=== PATIENT | female | born 1990 | race Caucasian/White ===

== ENCOUNTER 2017-01-20 16:20 | Inpatient (IN) | payer MEDICAID ==
[2017-01-20] MEDS ORDERED: OXYTOCIN/LACTATED RINGERS 250 ML IV ONE ×3 (16:53→18:03)
[2017-01-20] MEDS ORDERED: LIDOCAINE 1% 50 ML MDV ONE (16:53)
[2017-01-20 16:57] LABS: BASOPHILS % (AUTO) 0.3 %; EOSINOPHILS # (AUTO) 0.1 10^3/uL (0.0-0.7); EOSINOPHILS % (AUTO) 1.5 %; HCT - HEMATOCRIT 36.1 % (37.0-47.0); HGB - HEMOGLOBIN 11.9 g/dL (12.0-16.0); LYMPHOCYTES # (AUTO) 1.8 10^3/uL (1.5-3.5); LYMPHOCYTES % (AUTO) 21.1 %; MEAN CORPUSCULAR HEMOGLOBIN 28.2 pg (27.0-31.0); MEAN CORPUSCULAR HGB CONC 32.9 g/dL (32.0-36.0); MEAN CORPUSCULAR VOLUME 85.6 fL (81.0-99.0); MEAN PLATELET VOLUME 9.5 fL (7.9-10.8); MONOCYTES # (AUTO) 0.7 10^3/uL (0.0-1.0); MONOCYTES % (AUTO) 7.8 %; NEUTROPHILS # (AUTO) 5.8 10^3/uL (1.5-6.6); NEUTROPHILS % (AUTO) 69.3 %; RED BLOOD COUNT 4.21 10^6/uL (4.20-5.40); RED CELL DISTRIBUTION WIDTH 14.5 % (12.0-15.0); UNCORRECTED WHITE BLOOD COUNT 8.4 x10^3/uL; WHITE BLOOD COUNT 8.4 x10^3/uL (4.8-10.8)
[2017-01-20] MEDS ORDERED: SODIUM CHLORIDE FLUSH 0.9% 10 ML SYRINGE IVP PRN (17:48)
[2017-01-20] MEDS ORDERED: ACETAMINOPHEN 500 MG TABLET PO SCH (18:00)
[2017-01-20] MEDS ORDERED: LACTATED RINGERS 1,000 ML IV SCH ×2 (18:00→19:00)
[2017-01-20] MEDS ORDERED: oxyCODONE 5 MG TABLET PO PRN (18:03)
[2017-01-20] MEDS ORDERED: HYDROCORTISONE 1% CREAM 28 GM TUBE PR PRN (18:03)
[2017-01-20 18:44] LABS: BASOPHILS % (AUTO) 0.2 %; EOSINOPHILS # (AUTO) 0.1 10^3/uL (0.0-0.7); EOSINOPHILS % (AUTO) 0.9 %; HCT - HEMATOCRIT 33.6 % (37.0-47.0); HGB - HEMOGLOBIN 11.1 g/dL (12.0-16.0); LYMPHOCYTES # (AUTO) 1.2 10^3/uL (1.5-3.5); LYMPHOCYTES % (AUTO) 11.3 %; MEAN CORPUSCULAR HEMOGLOBIN 28.3 pg (27.0-31.0); MEAN CORPUSCULAR HGB CONC 33.1 g/dL (32.0-36.0); MEAN CORPUSCULAR VOLUME 85.6 fL (81.0-99.0); MEAN PLATELET VOLUME 9.2 fL (7.9-10.8); MONOCYTES # (AUTO) 0.7 10^3/uL (0.0-1.0); MONOCYTES % (AUTO) 6.5 %; NEUTROPHILS # (AUTO) 8.3 10^3/uL (1.5-6.6); NEUTROPHILS % (AUTO) 81.1 %; RED BLOOD COUNT 3.92 10^6/uL (4.20-5.40); RED CELL DISTRIBUTION WIDTH 14.4 % (12.0-15.0); UNCORRECTED WHITE BLOOD COUNT 10.2 x10^3/uL; WHITE BLOOD COUNT 10.2 x10^3/uL (4.8-10.8)
--- NOTE | 2017-01-20 18:58 | DELIVERY NOTE ---
Delivery Note - Labor Labor: positive: Spontaneous - Delivery Method Delivery Method: positive: Spontaneous vaginal delivery - Presentation Presentation: positive: Vertex, MAC - right occiput anterior - Nuchal Cord Nuchal Cord: positive: None - Anesthetic Anesthetic Type: Anesthetic: positive: Lidocaine - 1% plain Volume: positive: Other - Amniotic Fluid Description Amniotic Fluid Description: positive: Clear - Episiotomy Type Episiotomy Type: positive: None - Laceration Laceration: positive: Labial (left and right) - Suture Suture Type: positive: Vicryl Suture Size: positive: 3-0 - Delivery Outcome Delivery Outcome: positive: Livebirth - [place] Alt[place]ont: positive: Placed in direct skin contact with mother, Bulb syringe [place] sex: positive: Male (Apgars 8/9, 6lb 2oz) - Placenta Placenta: positive: Intact (acessory loab) - Estimated Blood Loss Estimated Blood Loss (in cc): 250 - Delivery Comments (Free Text/Narrative) Delivery Comments (Free Text/Narrative): Pt presented to labor an delivery with strong contractions. exam showed her to be 6/100%/0 station. She was deemed nontransferable. Iv was placed and blood drawn. she went to complete at 1637 and progressed to complete. Pushed thru 2 contractions and at 1643 delivered a live male infant 8/9 weight 6 lb 2 oz. she suffered left and right labial lacerations were repared wi 250 ml
--- NOTE | 2017-01-20 19:28 | PREOP HISTORY & PHYSICAL ---
DATE OF ADMISSION/SURGERY: IDENTIFICATION: The patient is a 26-year-old G4, P1, AB2 female whose last menstrual period was in April. She was seen at the Clinic in [place], at which time she had an ultrasound at 12 weeks which confirmed her due date of January,. This makes her 38.2 weeks today. CHIEF COMPLAINT: Contractions. HISTORY OF PRESENT ILLNESS: The patient states at roughly 12 o'clock she developed contractions which were strong. She denies any spontaneous rupture of membranes, does note some bloody discharge. She noted good motion. She presents at this time in active labor. Her OB history is positive for having had an initial diagnosis of with early ultrasound at 12 weeks which confirmed her due date. She had her OB care done at [facility] while she was in rehab. She was able to be released from rehab, however, she relapsed and she was placed on methadone. She states that she was currently taking 95 mg of methadone on a daily basis. She missed her last dose, and so she is supplementally utilizing initially IV heroin, then smoked heroin. She has also taken some methamphetamine's at this same time within the last 48 hours. Because her initial records were not available, she states that she tested negative for diabetes. She also relates she was negative for group B strep, however, those records are not available to us at this time. Her OB history, she had been cared for at the [facility]. She has received her methadone at the [facility]. PAST MEDICAL HISTORY: Positive for drug abuse since 22 years of age. She states that she has been clean off and on. SURGICAL HISTORY: None. CURRENT MEDICATIONS: She states she takes methadone 95 mg on a daily basis. HABITS: The patient denies use of alcohol or tobacco. Has utilized heroin within the last 24 hours, as well as methamphetamine. SOCIAL HISTORY: Lives with a boyfriend. PHYSICAL EXAMINATION: Physical examination is brief. VITAL SIGNS: Pulse 72, respirations 18, blood pressure 139/74. She is currently in active labor with strong contractions. HEENT: Pupils were equal, round, extraocular muscles are intact. There is no evidence of any scleral icterus. HEART: Regular rate and rhythm without murmurs. LUNGS: Lung roy are clear. ABDOMEN: Gravid, measures 36 cm. CERVIX: Cervix on admission was 6 cm, 100% effaced, 0 station, vertex. At this point we felt a transfer was not an option. DTR's are 3+. Labs are not available upon the initial examination. IMPRESSION: 1. A 38.2 weeks 4, para 1, AB2 female. 2. Methadone use. 3. Active labor with advanced dilatation. History of rapid deliveries. PLAN: Will place an IV. Will obtain an epidural if time allows and will plan to do a spontaneous vaginal delivery. Will attempt to have Pediatrics in attendance for delivery. JOB #: [id number] EXT JOB #:[id number] MTDD
[2017-01-20] MEDS ORDERED: METHADONE 5 MG TABLET PO SCH ×2 (19:30→20:00)
[2017-01-20] MEDS: IBUPROFEN 800 MG TABLET PO SCH (19:30)
[2017-01-20] MEDS ORDERED: DOCUSATE SODIUM 100 MG CAPSULE PO SCH (21:00)
[2017-01-20] MEDS: HYDROCORTISONE/PRAMOXINE 10 GM PR PRN (21:33)
[2017-01-20] MEDS: WITCH HAZEL/GLYCERIN 1 EACH MED..PAD TOP PRN (21:33)
[2017-01-20] MEDS ORDERED: SIMETHICONE CHEW 80 MG TABLET PO SCH (22:00)
[2017-01-20] MEDS ORDERED: SODIUM CHLORIDE FLUSH 0.9% 10 ML SYRINGE IVP SCH (22:00)
[2017-01-21] MEDS: IBUPROFEN 800 MG TABLET PO SCH (04:55)
[2017-01-21 06:29] LABS: BASOPHILS % (AUTO) 0.3 %; EOSINOPHILS # (AUTO) 0.1 10^3/uL (0.0-0.7); EOSINOPHILS % (AUTO) 1.2 %; HCT - HEMATOCRIT 28.5 % (37.0-47.0); HGB - HEMOGLOBIN 9.5 g/dL (12.0-16.0); LYMPHOCYTES # (AUTO) 2.3 10^3/uL (1.5-3.5); LYMPHOCYTES % (AUTO) 27.1 %; MEAN CORPUSCULAR HEMOGLOBIN 28.7 pg (27.0-31.0); MEAN CORPUSCULAR HGB CONC 33.4 g/dL (32.0-36.0); MEAN CORPUSCULAR VOLUME 85.8 fL (81.0-99.0); MEAN PLATELET VOLUME 9.3 fL (7.9-10.8); MONOCYTES # (AUTO) 0.8 10^3/uL (0.0-1.0); MONOCYTES % (AUTO) 9.3 %; NEUTROPHILS # (AUTO) 5.2 10^3/uL (1.5-6.6); NEUTROPHILS % (AUTO) 62.1 %; RED BLOOD COUNT 3.32 10^6/uL (4.20-5.40); RED CELL DISTRIBUTION WIDTH 14.3 % (12.0-15.0); UNCORRECTED WHITE BLOOD COUNT 8.4 x10^3/uL; WHITE BLOOD COUNT 8.4 x10^3/uL (4.8-10.8)
--- NOTE | 2017-01-21 07:40 | PROVIDER PROGRESS NOTE ---
Subjective - Prog Note Date Prog Note Date: 01/21/17 Prog Note Time: 07:37 - Subjective Pt reports feeling: Improved (Pt raiza swets or with drawel symptoms. Notes pain with urination. Baby at NICU in [place]. would like to go to be with baby. Pt will also go to [facility] for Methadone dose.) Objective - Vital Signs/Intake & Output Reviewed Vital Signs: Yes Vital Signs: Vital Signs x48h Temp Pulse Resp BP 01/21/17 04:55 36.8 C 96 16 83/52 L Intake & Output: Intake & Output 01/18/17 01/19/17 01/20/17 01/21/17 23:59 23:59 23:59 23:59 Output Total 800 Balance -800 - Objective General Appearance: positive: Alert, Mild distress (C/O perineal pain) Neck: positive: Nml inspection Respiratory: positive: Chest non-tender, No respiratory distress, Breath sounds nml. negative: Wheezes Cardiovascular: positive: Regular rate & rhythm, No murmur, No gallop Abdomen: positive: Non-tender, No organomegaly, Nml bowel sounds, Mass (At U) Back: positive: Nml inspection. negative: CVA tenderness (R), CVA tenderness (L ) Extremities: negative: Calf tenderness, Daphney's sign/cords Neurologic/Psychiatric: positive: Oriented x3 - Lab Results Fish Bones: 01/21/17 05:50 Other Labs: Lab Results x24hrs 01/21/17 01/20/17 01/20/17 Range/Units 05:50 18:12 16:42 WBC 8.4 10.2 (4.8-10.8) x10^3/uL RBC 3.32 L 3.92 L (4.20-5.40) 10^6/uL Hgb 9.5 L 11.1 L (12.0-16.0) g/dL Hct 28.5 L 33.6 L (37.0-47.0) % MCV 85.8 85.6 (81.0-99.0) fL MCH 28.7 28.3 (27.0-31.0) pg MCHC 33.4 33.1 (32.0-36.0) g/dL RDW 14.3 14.4 (12.0-15.0) % Plt Count 181 199 (130-450) 10^3/uL MPV 9.3 9.2 (7.9-10.8) fL Neut # 5.2 8.3 H (1.5-6.6) 10^3/uL Lymph # 2.3 1.2 L (1.5-3.5) 10^3/uL Ray # 0.8 0.7 (0.0-1.0) 10^3/uL Eos # 0.1 0.1 (0.0-0.7) 10^3/uL Baso # 0.0 0.0 (0.0-0.1) 10^3/uL Absolute Nucleated RBC 0.00 0.00 x10^3/uL Nucleated RBCs 0.0 0.0 /100WBC Blood Type O POSITIVE Antibody Screen NEGATIVE 01/20/17 Range/Units 16:42 WBC 8.4 (4.8-10.8) x10^3/uL RBC 4.21 (4.20-5.40) 10^6/uL Hgb 11.9 L (12.0-16.0) g/dL Hct 36.1 L (37.0-47.0) % MCV 85.6 (81.0-99.0) fL MCH 28.2 (27.0-31.0) pg MCHC 32.9 (32.0-36.0) g/dL RDW 14.5 (12.0-15.0) % Plt Count 220 (130-450) 10^3/uL MPV 9.5 (7.9-10.8) fL Neut # 5.8 (1.5-6.6) 10^3/uL Lymph # 1.8 (1.5-3.5) 10^3/uL Ray # 0.7 (0.0-1.0) 10^3/uL Eos # 0.1 (0.0-0.7) 10^3/uL Baso # 0.0 (0.0-0.1) 10^3/uL Absolute Nucleated RBC 0.00 x10^3/uL Nucleated RBCs 0.0 /100WBC Blood Type Antibody Screen Assessment/Plan - Problem List (1) Methadone dependence Impression: Pt is using 95 mg daily was given 60 mg. baby was transfered to [place] last night. Will discharge so she may be with her baby and will be able to get herDose at [facility]. (2) Vaginal delivery Impression: Pt is doing well. pt is not to breast feed. tight breast binding. Motrin pt wants to do Nexplanon.
[2017-01-21] MEDS: WITCH HAZEL/GLYCERIN 1 EACH MED..PAD TOP PRN (08:02)
[2017-01-21] MEDS: HYDROCORTISONE/PRAMOXINE 10 GM PR PRN (08:02)
[2017-01-21 08:32] VITALS: BP 109/66
[2017-01-21] MEDS ORDERED: MEASLES,MUMPS & RUBELLA VACC 0.5 ML VIAL SUBQ ONE (10:45)
== END 2017-01-21 10:10 | disposition home or self-care (01) | DRG 775 ==
LOC: WFO 16:20 → OB 16:27 → WFO 16:29 → OB 16:30 → UNDOADMIN 16:30 → WFO 17:08 → OB 17:08 → UNDOADMIN 17:09 → OB 17:09 → UNDODISIN 01-21 10:10
PROVIDERS: ADMIT Obstetrics & Gynecology; ATTEND Obstetrics & Gynecology
PROC: 10E0XZZ Delivery of Products of Conception, External Approach (ICD-10-PCS; principal; 2017-01-20)
PROC: 0HQ9XZZ Repair Perineum Skin, External Approach (ICD-10-PCS; 2017-01-20)
DX: O99.324 Drug use complicating childbirth (principal); F11.20 Opioid dependence, uncomplicated; O70.0 First degree perineal laceration during delivery; O43.193 Other malformation of placenta, third trimester; Z3A.38 38 weeks gestation of pregnancy; Z37.0 Single live birth
CPT/HCPCS: 36415; 80306; 85025; 86765; 86850; 86900; 86901; 87797; 88307; 99211

== ENCOUNTER 2017-04-22 07:53 | Emergency (ER) | payer MEDICAID ==
[2017-04-22] MEDS ORDERED: LIDOCAINE 1% 2 ML VIAL ONE (09:31)
--- NOTE | 2017-04-22 09:59 | ED Physician Documentation ---
PD HPI SKIN - Stated complaint Stated Complaint: LEFT ARM PX - Chief complaint Chief Complaint: Ext Problem - History obtained from History obtained from: Patient - History of Present Illness Timing - onset: How many weeks ago (1) Timing - duration: Weeks (1) Timing - details: Gradual onset, Still present Location: LUE Quality / character: Painful, Discolored, Swelling Associated symptoms: Myalgias. No: Fever Contributing factors: Other (shooting) Similar symptoms before: Diagnosis (abscess) Recently seen: Not recently seen - Additional information Additional information: 26-year-old female with history of IV drug use has developed an abscess in her left forearm. She has been having some swelling and erythema for the past week is much worse now. Review of Systems Constitutional: denies: Fever Respiratory: denies: Cough GI: denies: Vomiting Musculoskeletal: reports: Extremity pain, Extremity swelling. denies: Neck pain Neurologic: denies: Generalized weakness, Focal weakness, Numbness PD PAST MEDICAL HISTORY - Present Medications Home Medications: Ambulatory Orders Medication Instructions Recorded Confirmed Sulfamethoxazole/Trimethoprim 1 each PO BID #14 tablet 04/22/17 [Sulfamethoxazole-Tmp Ds Tablet] - Allergies Allergies/Adverse Reactions: Allergies Allergy/AdvReac Type Severity Reaction Status Date / Time No Known Drug Allergies Allergy Verified 01/20/17 19:56 - Social History Does the pt smoke?: No Smoking Status: Never smoker Does the pt drink ETOH?: No Does the pt have substance abuse?: Yes Substance Use and Type: Meth, Heroin PD ED PE NORMAL - Vitals Vital signs reviewed: Yes (hypertensive ) - General General: No acute distress, Well developed/nourished - HEENT HEENT: Atraumatic, PERRL, EOMI - Cardiac Cardiac: RRR, No murmur - Respiratory Respiratory: No respiratory distress, Clear bilaterally - Derm Derm: Normal color, Warm and dry, No rash - Extremities Extremities: Other (Over the left medial forearm is a tender erythematous 3 cm round mass with fluctuance. Presence of free fluid is confirmed with bedside ultrasound. There is no lymphangitic streaking distal neurovascular components are intact) - Neuro Neuro: No motor deficit, No sensory deficit - Psych Psych: Normal mood, Normal affect Results - Vitals Vitals: Vital Signs - 24 hr 04/22/17 08:03 Temperature 36.6 C Heart Rate 79 Respiratory 16 Rate Blood Pressure 137/91 H O2 Saturation 98 Oxygen O2 Source Room air Procedures - Abscess I&D (location) left forearm Preparation: Confirmed with ultrasound, Chlorhexadine, Lidocaine 1% Incision: Incised with scalpel, Purulent drainage, Loculations broken, Irrigated , Culture obtained Other: Pt tolerated well, Dressing applied, Antibiotic prescribed (septra) PD MEDICAL DECISION MAKING - ED course Complexity details: considered differential, d/w patient ED course: 26-year-old female with a forearm abscess to his incision and drainage done of a fair quantity of pus with some improvement in her pain. Departure - Departure Disposition: 01 Home, Self Care Clinical Impression: Abscess Condition: Stable Instructions: ED Abscess IandD Follow-Up: [facility] [Provider Group] Prescriptions: Sulfamethoxazole/Trimethoprim [Sulfamethoxazole-Tmp Ds Tablet] 1 each PO BID # 14 tablet
[2017-04-22 10:20] VITALS: BP 114/65
== END 2017-04-22 10:25 | disposition home or self-care (01) ==
LOC: ED 07:53
DX: L02.414 Cutaneous abscess of left upper limb (principal)
CPT/HCPCS: 10060; 87070; 87205; 99283

== ENCOUNTER 2018-07-03 19:25 | Emergency (ER) | payer MEDICAID ==
--- NOTE | 2018-07-03 20:24 | ED Physician Documentation ---
PD HPI ABD PAIN - Stated complaint Stated Complaint: FEMALE - Chief complaint Chief Complaint: Abd Pain - History obtained from History obtained from: Patient - History of Present Illness Timing - onset: How many days ago (2-3) Timing - details: Gradual onset, Waxing and waning Pain level now: 9 Quality: Cramping Location: Other (across lower pelvis, but primarily midline and left pelvis) Improved by: Other (no ameliorating factors) Worsened by: Palpation Associated symptoms: No: Fever, Nausea, Vomiting Recently seen: Not recently seen - Additional information Additional information: c/o few days of pelvic cramping, vaginal and pelvic discomfort. Patient says "I think I might have left a tampon in there". Denies d/c except mild vaginal bleeding Review of Systems Constitutional: denies: Fever Cardiac: reports: Reviewed and negative Respiratory: reports: Reviewed and negative GI: denies: Abdominal Pain, Nausea, Vomiting : reports: Vaginal bleeding. 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(s) : None HEENT: None Psych: None Musculoskeletal: None Derm: None - Past Surgical History Past Surgical History: No - Present Medications Home Medications: Ambulatory Orders Medication Instructions Recorded Confirmed No Known Home Medications 07/03/18 07/03/18 - Allergies Allergies/Adverse Reactions: Allergies Allergy/AdvReac Type Severity Reaction Status Date / Time No Known Drug Allergies Allergy Verified 07/03/18 19:35 - Social History Does the pt smoke?: No Smoking Status: Current every day smoker Does the pt drink ETOH?: No Does the pt have substance abuse?: Yes Substance Use and Type: Meth, Heroin - Immunizations Immunizations are current?: No - POLST Patient has POLST: No PD ED PE NORMAL - Vitals Vital signs reviewed: Yes - General General: Alert and oriented X 3, No acute distress, Well developed/nourished - Abdomen Abdomen: Soft, Non tender - Back Back: No CVA TTP PD ED PE EXPANDED - Female Female : Normal external, Tissue present (there is a fungating mass in the posterior vagina). No: Skin lesions, Vaginal Bleeding, Vaginal Discharge Results - Vitals Vitals: Vital Signs - 24 hr 07/03/18 07/04/18 19:32 00:03 Temperature 36.4 C L 36.8 C Heart Rate 93 68 Respiratory 18 12 Rate Blood Pressure 108/68 96/62 O2 Saturation 100 97 Oxygen O2 Source Room air - Labs Labs: Laboratory Tests 07/03/18 07/03/18 07/03/18 22:10 22:10 22:10 WBC 7.4 RBC 4.63 Hgb 13.3 Hct 41.0 MCV 88.6 MCH 28.9 MCHC 32.6 RDW 13.2 Plt Count 248 MPV 8.2 Neut # (Auto) 4.3 Lymph # (Auto) 1.9 [place] # (Auto) 0.8 Eos # (Auto) 0.3 Baso # (Auto) 0.0 Absolute Nucleated RBC 0.01 Nucleated RBC % 0.1 Sodium 135 Potassium 4.1 Chloride 100 L Carbon Dioxide 29 Anion Gap 6.0 BUN 11 Creatinine 0.5 Estimated GFR (MDRD) 147 Glucose 83 Calcium 8.7 HCG, Quant < 0.60 A/P - Rads (name of study) CT A/P Radiology: Prelim report reviewed, See rad report PD MEDICAL DECISION MAKING - ED course Complexity details: considered differential, d/w patient - Consults Consults: Consulted (name) (Dr. Perez, who came to ED and evaluated patient) Departure - Departure Disposition: 01 Home, Self Care Clinical Impression: Pelvic pain, Vaginal mass Condition: Good Instructions: ED Pelvic Pain [facility] Follow-Up: Nima Perez MD [Provider Admit Priv/Credential] - Comments: Follow up with Dr. Perez as instructed. Discharge Date/Time: 07/04/18 02:54
--- NOTE | 2018-07-03 22:15 | ED Physician Documentation ---
ED Addendum - Addendum Addendum: 07/03/18 22:15 She was difficult for IV access because of ongoing IV drug use. I personally placed a 22-gauge long IV in the right deep brachial vein using real-time ultrasound guidance which flushed and sarah easily and labs were sent. I was otherwise uninvolved in her care.
[2018-07-03 22:16] LABS: BASOPHILS % (AUTO) 0.3 %; EOSINOPHILS # (AUTO) 0.3 10^3/uL (0.0-0.7); HGB - HEMOGLOBIN 13.3 g/dL (12.0-16.0); LYMPHOCYTES # (AUTO) 1.9 10^3/uL (1.5-3.5); LYMPHOCYTES % (AUTO) 26.3 %; MEAN CORPUSCULAR HEMOGLOBIN 28.9 pg (27.0-31.0); MEAN CORPUSCULAR HGB CONC 32.6 g/dL (32.0-36.0); MEAN CORPUSCULAR VOLUME 88.6 fL (81.0-99.0); MEAN PLATELET VOLUME 8.2 fL (7.9-10.8); MONOCYTES # (AUTO) 0.8 10^3/uL (0.0-1.0); MONOCYTES % (AUTO) 10.6 %; NEUTROPHILS # (AUTO) 4.3 10^3/uL (1.5-6.6); NEUTROPHILS % (AUTO) 58.8 %; PLT - PLATELET COUNT 248 10^3/uL (130-450); RED BLOOD COUNT 4.63 10^6/uL (4.20-5.40); RED CELL DISTRIBUTION WIDTH 13.2 % (12.0-15.0); WHITE BLOOD COUNT 7.4 x10^3/uL (4.8-10.8)
[2018-07-03 22:26] LABS: CALCIUM 8.7 mg/dL (8.5-10.3); CREATININE 0.5 mg/dL (0.4-1.0)
[2018-07-03] MEDS ORDERED: IOVERSOL 320 100 ML VIAL IVP ONE ×2 (22:53→23:10)
--- NOTE | 2018-07-03 23:55 | CT Report ---
Reason: pelvic pain Procedure Date: 07/03/2018 Accession Number: [id number] / [id number] Procedure: CT - Abdomen/Pelvis W/ CPT Code: FULL RESULT: EXAM: CT ABDOMEN AND PELVIS EXAM DATE: 07/03/2018 11:19 PM. CLINICAL HISTORY: Pelvic pain. COMPARISONS: None. TECHNIQUE: Routine helical CT imaging was performed through the abdomen and pelvis. IV contrast: OPTIRAY 320 100mL. Enteric contrast: No. Reconstructions: Coronal and sagittal. In accordance with CT protocol optimization, one or more of the following dose reduction techniques were utilized for this exam: automated exposure control, adjustment of mA and/or KV based on patient size, or use of iterative reconstructive technique. FINDINGS: Lung Bases: Clear. Liver: Normal. No focal hepatic lesion. Gallbladder/Bile Ducts: Unremarkable. No visualized stones or biliary ductal dilatation. Spleen: Normal. Pancreas: Normal. Adrenal Glands: Normal. Kidneys and Ureters: Normal. No stones, hydronephrosis, or hydroureter. Peritoneal Cavity/Bowel: No evidence for bowel obstruction or acute inflammatory process. The appendix is normal. No free fluid, pneumoperitoneum, or adenopathy. Pelvic Organs: The endometrial and endocervical canals and upper vagina are distended with fluid. Small pockets of gas within the upper vagina. The bladder and ovaries are within normal limits. Vasculature: Unremarkable. Bones: No significant abnormality. Other: None. IMPRESSION: Distention of the endometrial and endocervical canals and upper vagina with fluid, most likely representinghematometrocolpos due to vaginal obstruction, uncertain etiology. Secondary infection could be present given small pockets of gas in the upper vagina. RADIA The above findings were discussed with Lorenzo Kuhn by Dr. Charisma Jernigan at 23:54 hrs on 07/03/18.
[2018-07-04 00:05] VITALS: BP 96/62
--- NOTE | 2018-07-04 12:33 | CONSULTATION NOTE ---
DATE OF SERVICE: 07/03/2018 Physician: Nima Perez MD EMERGENCY ROOM CONSULTATION DIAGNOSES 1. Endocervical mass. 2. Hematometra. 3. Abdominal and pelvic pain. PROCEDURES: Endocervical mass torsed free and submitted to pathology. HISTORY: Patient is a 27-year-old , 1, para 1 (vaginal delivery 2017), who presents to the emergency room with abdominal and pelvic pain with suspicion of retained tampon. Dr. Kuhn did her initial evaluation and found a fleshy tumor in the vaginal apex replacing the cervix. He called me in to consultation to evaluate the same. Patient reports bilateral mid pelvic pain for the last 3 days that is on most days 01/19, but today 9/10. It has a cramping quality and is associated with vaginal bleeding. The patient thinks that she may have forgotten a tampon but cannot recall exactly when this event would occur. Her menses are every 28 days with LMP some time greater than 2 weeks ago. She has no foul discharge, fevers, chills. She denies history of STI or PID. In preparation for this evaluation, a CT scan was obtained. CT documents hematometra and possible hematocolpos with some gas noted. Obstructing vaginal mass is suspected and possible infection. 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 This problem dates back to 2017. Reference Dr. Berry's delivery note at that time. The patient denies chronic cardiovascular disease, renal disease or GI disease. ALLERGIES: NO KNOWN DRUG ALLERGIES. MEDICATIONS: None reported. SOCIAL HISTORY: A single parent, supportive history of both heroin and methamphetamine use in the past; no alcohol use. She is a smoker and smokes daily. The patient denies current drug use. REVIEW OF SYSTEMS CONSTITUTIONAL: Negative. No fevers, chills, nausea, vomiting. HEENT: Negative. CARDIOVASCULAR: Negative. PULMONARY: Negative. GASTROINTESTINAL: Negative. GENITOURINARY: Reference HPI. EXTREMITIES: Negative. SKIN: Negative today. PHYSICAL EXAMINATION GENERAL: Patient dozing comfortably on gurney; on arousal alert, oriented, cooperative. VITAL SIGNS: Temperature 36.4, pulse 93 and regular, blood pressure 108/68, pulse oximeter 100. HEENT: Supple neck. No thyromegaly. Dentition in repair. LUNGS: Clear to auscultation. CARDIAC: Regular. No murmur, no gallop. BREASTS: Deferred. ABDOMEN: Flat, nontender. No mass. No organomegaly. No CVA tenderness. EXTERNAL GENITALIA: Normal hair distribution, no lesions. VAGINA: Old blood in the vaginal vault, but no foreign body or foul discharge. CERVIX: A 2.5 x 3.0 endocervical mass dilating the cervical os. MINOR PROCEDURE: Received verbal permission from the patient to remove this mass. The speculum was used to visualize the cervix. The mass was then grasped with ring forceps and torsed. The mass was easily removed without any significant bleeding though there was release of blood from the uterus. The patient reports immediate relief. UTERUS: Mid position enlarged to 6-7 weeks size, tender. ADNEXA: No mass. Normal ovaries. EXTREMITIES: Nonedematous. NEUROLOGIC: Grossly intact. LABORATORY DATA: Electrolytes normal. Creatinine 0.5; test negative. Hemoglobin 13.3, white count 7.4, platelets 248. ASSESSMENT: Patient has a fleshy, 3 cm apparent benign tumor dilating & obstructing the endocervical canal. Given her age group, in all likelihood, this is benign such as a degenerating fibroid, polyp, or possibly a granulation reaction to a previous foreign body or infection. Removal of the foreign body relieved hematometra and gave pain relief. Endocervical tumor was sent to pathology. Await pathology report. PLAN: Patient to have a followup appointment at my office after the new year, to review pathology report and determine if further action needs to be taken. Contraception evaluation will be done at that time. Patient was given warning sign and callback instructions. She was discharged home in good condition. MEDICATIONS: [id number] Motrin as needed. TD: 07/04/2018 11:11 CASSANDRA
== END 2018-07-04 02:54 | disposition home or self-care (01) ==
LOC: ED 19:25
DX: N89.9 Noninflammatory disorder of vagina, unspecified (principal); N85.7 Hematometra; F17.200 Nicotine dependence, unspecified, uncomplicated
CPT/HCPCS: 36415; 74177; 80048; 84702; 85025; 99283; Q9967